=== PATIENT | female | born 1950 | race American Indian/Alaskan Native ===

== ENCOUNTER 2017-01-07 18:09 | Emergency (ER) | payer MEDICARE, BC ==
[2017-01-07] MEDS ORDERED: Sodium Chloride 0.9% 1,000 ML IV ONE (18:27)
[2017-01-07] MEDS ORDERED: Ondansetron 4 MG/2 ML SDV IV ONE (18:27)
[2017-01-07] MEDS ORDERED: HYDROmorphone 1 MG/ML Syringe IVPUSH ONE (18:29)
[2017-01-07 19:00] LABS: CHLORIDE,CL 106 mmol/L (101-111); SODIUM,NA 139 mmol/L (135-145)
[2017-01-07] MEDS ORDERED: Iopamidol 612 MG/ML 100 ML Bottle IVPUSH ONE (19:02)
[2017-01-07] MEDS ORDERED: Metoclopramide 10 MG/2 ML SDV IVPUSH ONE (20:28)
--- NOTE | 2017-01-07 20:28 | EDM.PDOC ---
ED HPI GENERAL MEDICAL PROBLEM - General Chief Complaint: General Stated Complaint: SICK [id number] Time Seen by Provider: 01/07/17 18:20 Source of Information: Reports: Patient History Limitations: Reports: No limitations - History of Present Illness INITIAL COMMENTS - FREE TEXT/NARRATIVE: c/o severe nausea and headache. Had colonoscopy today in [place], released after, ate PB sandwhich and then later ate chicken nuggets and fries. On way home became ill. Hx of similar reaction to anesthesia. Nausea but no pain in abdomen. No previous hx of headaches in past. No light sensitivity. Onset: gradual Duration: Hour(s): Bilateral Abdomen Pain Score (Numeric/FACES): 10 - Related Data Allergies Allergy/AdvReac Type Severity Reaction Status Date / Time Penicillins Allergy Itching Verified 01/07/17 18:43 Tetanus Vaccines and Toxoid Allergy Cannot Verified 01/07/17 18:43 Remember Home Meds: Home Meds Aspirin [Jeni Chewable] 81 mg PO DAILY 01/07/17 [History] Calcium Carbonate [Calcium] 1,000 mg PO DAILY 01/07/17 [History] Cranberry Extract [Cranberry] 1,000 mg PO DAILY 01/07/17 [History] Dexlansoprazole [Dexilant] 30 mg PO DAILY 01/07/17 [History] Hydrochlorothiazide 25 mg PO DAILY 01/07/17 [History] Ibuprofen [Motrin] 600 mg PO Q6H PRN 01/07/17 [History] Levothyroxine [Synthroid] 88 mcg PO ACBREAKFAST 01/07/17 [History] [place]-3/DHA/Epa/Fish Oil [[place] 3 500 Softgel] 1 each PO DAILY 01/07/17 [History ] Potassium 99 mg PO DAILY 01/07/17 [History] Past Medical History Gastrointestinal History: Reports: GERD Social & Family History - Family History Family Medical History: Noncontributory - Tobacco Use Smoking Status *Q: Never Smoker - Caffeine Use Caffeine Use: Reports: None - Recreational Drug Use Recreational Drug Use: No ED ROS GENERAL - Review of Systems Review Of Systems: See Below Constitutional: Reports: no symptoms HEENT: Reports: No symptoms Respiratory: Reports: No Symptoms Cardiovascular: Reports: No symptoms GI/Abdominal: Reports: Nausea, Vomiting. Denies: Abdominal pain : Reports: no symptoms, other (routine colonoscopy today) Musculoskeletal: Reports: no symptoms Neurological: Reports: Headache Psychiatric: Reports: Anxiety ED EXAM, GENERAL - Physical Exam Exam: See Below Exam Limited By: No limitations General Appearance: anxious, moderate distress Eye Exam: bilateral eye: EOMI, PERRL Ears: normal external exam, normal TMs Nose: normal inspection Throat/Mouth: Normal inspection Head: atraumatic, normocephalic Neck: normal inspection, full range of motion Respiratory/Chest: no respiratory distress, lungs clear, normal breath sounds Cardiovascular: normal peripheral pulses, regular rate, rhythm, tachycardia GI/Abdominal: no distention. No: tender Neurological: alert, oriented Psychiatric: anxious (moaning ) Skin Exam: Warm, Dry, Intact, Normal color Course - Vital Signs Last Recorded V/S: Last Vital Signs Temp 98.4 F 01/07/17 20:34 Pulse 105 H 01/07/17 20:34 Resp 17 01/07/17 20:34 BP 116/60 01/07/17 20:34 Pulse Ox 100 01/07/17 20:34 - Orders/Labs/Meds Labs: Laboratory Tests 01/07/17 01/07/17 01/07/17 Range/Units 18:35 18:35 20:00 WBC 20.6 H (5.0-10.0) 10^3/uL RBC 4.47 (4.2-5.4) 10^6/uL Hgb 14.7 (12.0-16.0) g/dL Hct 42.0 (37.0-47.0) % MCV 94.0 (80-100) fL MCH 32.9 (27.0-34.0) pg MCHC 35.0 (33.0-35.0) g/dL Plt Count 264 (150-450) 10^3/uL Neut % (Auto) 92.7 H (42.2-75.2) % Lymph % (Auto) 3.4 L (20.5-50.1) % [place] % (Auto) 3.7 (2-8) % Eos % (Auto) 0.1 L (1.0-3.0) % Baso % (Auto) 0.1 (0.0-1.0) % Sodium 139 (135-145) mmol/L Potassium 3.3 L (3.6-5.0) mmol/L Chloride 106 (101-111) mmol/L Carbon Dioxide 23.0 (21.0-31.0) mmol/L Anion Gap 13.3 BUN 14 (7-18) mg/dL Creatinine 0.8 (0.6-1.3) mg/dL Est Cr Clr Drug Dosing TNP Estimated GFR (MDRD) > 60 BUN/Creatinine Ratio 17.50 Glucose 121 H (74-105) mg/dL Lactic Acid 2.2 (0.5-2.2) mmol/L Calcium 9.0 (8.4-10.2) mg/dl Total Bilirubin 0.9 (0.2-1.0) mg/dL AST 38 (10-42) IU/L ALT 27 (10-60) IU/L Alkaline Phosphatase 61 (42-121) IU/L Total Protein 7.9 (6.7-8.2) g/dl Albumin 4.1 (3.2-5.5) g/dl Globulin 3.8 Albumin/Globulin Ratio 1.08 Amylase 53 (28-100) U/L Lipase 24 (22-51) U/L Meds: Medications Discontinued Medications Generic Name Dose Route Start Last Admin Trade Name Freq PRN Reason Stop Dose Admin Hydromorphone HCl 1 mg 01/07/17 18:29 01/07/17 18:40 Dilaudid IVPUSH 01/07/17 18:30 1 mg ONETIME ONE Administration Sodium Chloride 1,000 mls @ 250 mls/hr 01/07/17 18:27 01/07/17 18:40 Normal Saline IV 01/07/17 22:26 250 mls/hr .BOLUS ONE Administration Iopamidol 100 ml 01/07/17 19:02 01/07/17 19:16 Isovue-300 (61%) IVPUSH 01/07/17 19:03 100 ml ONETIME ONE Administration Meclizine HCl 12.5 mg 01/07/17 20:35 01/07/17 20:39 Antivert PO 01/07/17 20:36 12.5 mg ONETIME ONE Administration Metoclopramide HCl 10 mg 01/07/17 20:28 Reglan IVPUSH 01/07/17 20:29 ONETIME ONE Metoclopramide HCl 10 mg 01/07/17 20:35 01/07/17 20:41 Reglan IM 01/07/17 20:36 10 mg ONETIME ONE Administration Ondansetron HCl 4 mg 01/07/17 18:27 01/07/17 18:40 Zofran IV 01/07/17 18:28 4 mg ONETIME ONE Administration Ondansetron HCl Confirm 01/07/17 20:33 01/07/17 20:36 Zofran Odt Administered 01/07/17 20:34 Not Given Dose 12 mg .ROUTE .STK-MED ONE - Radiology Interpretation Free Text/Narrative:: Quiet resting following zofran and dilaudid, headache and nausea improved. Departure - Departure Time of Disposition: 20:45 Disposition: Home, Self-Care 01 Condition: fair Clinical Impression: S/P colonoscopy Nausea & vomiting Qualifiers: Vomiting type: bilious vomiting Qualified Code(s): R11.14 - Bilious vomiting Instructions: Nausea, Adult Forms: ED Department Discharge Additional Instructions: light diet 24 hours, start liquids in small amounts and advance slowly zofran odt 4mg every 4 hours as needed for nausea follow up if abdominal pain or fever.
[2017-01-07] MEDS ORDERED: Ondansetron 4 MG Tab.DIS PO ONE (20:33)
[2017-01-07] MEDS ORDERED: Ondansetron 4 MG Tab.DIS ONE (20:33)
[2017-01-07] MEDS ORDERED: Meclizine 12.5 MG Tab PO ONE (20:35)
[2017-01-07] MEDS ORDERED: Metoclopramide 10 MG/2 ML SDV IM ONE (20:35)
[2017-01-07 20:42] VITALS: BP 116/60
== END 2017-01-07 20:47 | disposition home or self-care (01) ==
LOC: DL.ED 18:09
DX: R11.14 Bilious vomiting (principal); K21.9 Gastro-esophageal reflux disease without esophagitis; Z88.0 Allergy status to penicillin; Z79.82 Long term (current) use of aspirin; Z79.899 Other long term (current) drug therapy
CPT/HCPCS: 36415; 70450; 74177; 80053; 82150; 83605; 83690; 85025; 96361; 96372; 96374; 99284; A9270; J1170; J2405; J2765; J7030; Q9967